=== PATIENT | female | born 2000 | race Caucasian/White ===

== ENCOUNTER 2022-03-23 19:05 | Emergency (ER) | payer OTHER, SELFPAY ==
--- NOTE | ~2022-03-23 | US_ITS ---
US OB <=14 wk fetus w TV DATE: 03/23/2022 21:44 INDICATION: Vaginal bleeding and cramping and 6 week gravid patient TECHNIQUE: Real-time imaging via transabdominal and transvaginal approaches COMPARISON: None FINDINGS: The uterus measures approximately 8.5 cm height, 5 cm AP dimension. A small intrauterine gestational sac with yolk sac is identified, with normal surrounding hyperechoge nicity consistent with decidual reaction. pole is not definitely identified. Gestational sac size of 0.42 cm it consistent with estimated gestational age of 5 weeks 1 day +/- 3 d ays with ZACH of 11/22/2022. Right ovary 4.0 x 1.9 x 1.9 cm. Left ovary 3.4 x 1.3 x 1.6 cm. There is blood flow to both ovaries. N o adnexal mass lesion or abnormal free pelvic fluid collection is evident. IMPRESSION: Early intrauterine gestation, 5 weeks 1 day estimated gestational age, with ZACH of 2021 Reviewed, dictated and finalized at [facility] Reviewed, dictated and finalized at [facility]. IMPRESSION: Early intrauterine gestation, 5 weeks 1 day estimated gestational a ge, with ZACH of 11/22/2022
[2022-03-23 19:09] VITALS: BP 126/82; PULSE 78; RESP 14; TEMP 36.6; O2SAT 100
[2022-03-23 20:16] VITALS: BP 125/83; PULSE 83; RESP 18; O2SAT 99
--- NOTE | 2022-03-23 20:54 | ED.GENADULT ---
HPI - General Adult General Chief complaint: Vaginal Bleeding <ELIAN Spears Last Filed: 03/24/22 03:18> Stated complaint: preg, vag bleeding <ELIAN Spears Last Filed: 03/24/22 03:18> Time Seen by Provider: 03/23/22 20:15 <ELIAN Spears Last Filed: 03/24/22 03:18> History of Present Illness HPI narrative: 21-year-old female, G1, P0, who is currently 6 weeks , here for evaluation of vaginal spotting and abdominal cramping for the past 2 days. Patient reports she has gone through about 3 pantiliners today and does note small blood clots. States her cramping is mild and intermittent and is across her lower abdomen, and occasionally is present in her labia. She has established care with Emily Sales NP at [facility]. She was seen last week there for a Pap test, but has not had an ultrasound to confirm IUP. Reports some lightheadedness today, but no syncope, chest pain, shortness of breath, fevers, vaginal discharge. <ELIAN Spears Last Filed: 03/24/22 03:18> Related Data Allergies/adverse reactions: Allergies Allergy/AdvReac Type Severity Reaction Status Date / Time No Known Allergies Allergy Verified 03/23/22 19:13 <ELIAN Spears Last Filed: 03/24/22 03:18> Review of Systems Review of Systems: Gen: Denies fevers or chills Eyes: Denies eye pain or visual change ENT: Denies congestion Respiratory: Denies shortness of breath or cough CV: Denies chest pain or palpitations GI: Reports abdominal cramping. Denies nausea, emesis or diarrhea : Reports vaginal bleeding. Denies burning, urgency, frequency or hematuria Musculoskeletal: Denies back pain or muscle pain Neuro: Denies numbness, tingling, weakness or focal weakness Skin: Denies rash Except as documented, all other systems reviewed and negative <ELIAN Spears Last Filed: 03/24/22 03:18> All systems reviewed & are unremarkable except as noted in HPI and below <Evon Aguilar PA-C - Last Filed: 03/24/22 03:18> Exam Narrative: APPEARANCE: Well appearing, no pain in distress, well-nourished. Head: normocephalic and atraumatic. EYES: PERRLA/EOMI, conjunctivae clear NOSE: No nasal drainage EARS: External ear normal in appearance THROAT: Oropharynx is clear. Mucous membranes are moist. NECK: Supple. No adenopathy, no masses. RESPIRATORY: Airway patent, respirations nonlabored. Clear to auscultation bilaterally, no rales, rhonchi, wheezing. CARDIOVASCULAR: Regular rate and rhythm without murmurs, rubs, or gallops. ABDOMINAL: Normoactive bowel sounds. Soft, nontender, nondistended. No rebound tenderness or guarding. : Performed with legal practice manager Rowena. Small amount of blood in vaginal vault. Cervical os closed. MUSCULOSKELETAL: Extremities are warm and well-perfused. Moves all extremities well. No edema. NEURO: Normal speech. No focal neurologic deficits. SKIN: Skin is warm and dry. No rashes. PSYCHIATRIC: Normal affect/mood. <Evon Aguilar PA-C - Last Filed: 03/24/22 03:18> Course [employer]ER/PA Physician Supervision I did not see this patient but the care plan was discussed with me, labs and imaging reviewed. I agree with the documentation as above <Alberto Caban MD - Last Filed: 03/24/22 07:25> Vital Signs Vital signs: Vital Signs Temperature 36.6 C 03/23/22 19:09 Pulse Rate 78 03/23/22 19:09 Respiratory Rate 14 03/23/22 19:09 Blood Pressure 126/82 03/23/22 19:09 Pulse Oximetry 100 03/23/22 19:09 Temperature 36.6 C 03/23/22 19:09 Pulse Rate 88 03/23/22 22:09 Respiratory Rate 16 03/23/22 22:09 Blood Pressure 119/72 03/23/22 22:09 Pulse Oximetry 100 03/23/22 22:09 <Evon Aguilar PA-C - Last Filed: 03/24/22 03:18> Vital Signs Temperature 36.6 C 03/23/22 19:09 Pulse Rate 78 03/23/22 19:09 Respiratory Rate 14 03/23/22 19:09 Blood Pressure 126/82 03/23/
[2022-03-23 21:10] LABS: Basophils Absolute Auto 0.1 K/mm3 (0.0-0.1); Basophils Percent Auto 0.6 % (0.2-1.2); Eosinophils Absolute Auto 0.5 K/mm3 (0-0.3); Eosinophils Percent Auto 5.7 % (0-4.4); Hematocrit 33.7 % (37.0-47.0); Hemoglobin 11.4 g/dL (12.0-15.0); Immature Granulocyte Absolute 0.02 K/mm3 (0.00-0.031); Immature Granulocyte Percent A 0.2 % (0-0.5); Lymphocytes Absolute Auto 2.39 K/mm3 (0.9-3.2); Lymphocytes Percent Auto 27.3 % (18.3-44.2); Mean Corpuscular HGB Conc 33.8 g/dl (32-36); Mean Corpuscular Hemoglobin 29.7 pg (26-34); Mean Corpuscular Volume 87.8 fl (80-100); Mean Platelet Volume 9.6 fl (7.4-10.4); Monocytes Absolute Auto 0.6 K/mm3 (0.1-0.6); Monocytes Percent Auto 6.5 % (2.6-8.5); Neutrophils Absolute Auto 5.2 K/mm3 (1.3-6.7); Neutrophils Percent Auto 59.7 % (45.5-73.1); Platelet Count Result 265 k/mm3 (150-375); Red Blood Count 3.84 M/mm3 (4.2-5.4); Red Cell Distribution Width 12.4 % (11.5-14.5); White Blood Count 8.8 K/mm3 (4.5-10.0)
--- NOTE | 2022-03-23 21:13 | PC.NURSE ---
[facility] arrived to transport pt
[2022-03-23 21:14] LABS: Add Urine Microscopic? YES; Appearance Urine Clear (Clear); Bilirubin Urine Negative (Negative); Blood Urine 3+ (Negative); Color Urine Yellow (Yellow); Glucose Urine UA Negative (Negative); Ketones Urine Negative (Negative); Leukocyte Esterase Ur Negative LEU/UL (Negative); Mucus Urine Rare /lpf; Nitrate Urine Negative (Negative); Protein Urine Negative (Negative); RBC Urine 0-2 /hpf (0-2); Specific Grav Ur 1.013 (1.001-1.035); Squamous Epithelial Cell Urine Occasional /hpf (Few); Urobilinogen Urine Negative mg/dL (<2.0); WBC Urine 0-3 /hpf
--- NOTE | 2022-03-23 21:52 | PC.NURSE ---
Pt requesting water. Pt educated on reason for NPO status, verbalized understanding.
[2022-03-23 22:09] VITALS: BP 119/72; PULSE 88; RESP 16; O2SAT 100
== END 2022-03-23 23:21 | disposition home or self-care (01) ==
PROVIDERS: Physician Assistant; Emergency Provider Emergency Medicine; PCP Nurse Practitioner Family
DX: O20.9 Hemorrhage in early pregnancy, unspecified (principal); Z3A.01 Less than 8 weeks gestation of pregnancy
CPT/HCPCS: 36415; 76801; 76817; 81001; 84702; 85025; 85461; 99284

== ENCOUNTER 2022-03-25 23:03 | Emergency (ER) | payer OTHER, SELFPAY ==
[2022-03-25 23:05] VITALS: BP 115/76; PULSE 95; RESP 14; TEMP 36.5; O2SAT 100
[2022-03-26 00:34] LABS: Basophils Absolute Auto 0.1 K/mm3 (0.0-0.1); Basophils Percent Auto 0.7 % (0.2-1.2); Eosinophils Absolute Auto 0.4 K/mm3 (0-0.3); Eosinophils Percent Auto 4.6 % (0-4.4); Hematocrit 33.2 % (37.0-47.0); Immature Granulocyte Absolute 0.03 K/mm3 (0.00-0.031); Immature Granulocyte Percent A 0.4 % (0-0.5); Lymphocytes Absolute Auto 2.86 K/mm3 (0.9-3.2); Lymphocytes Percent Auto 37.9 % (18.3-44.2); Mean Corpuscular HGB Conc 33.1 g/dl (32-36); Mean Corpuscular Hemoglobin 29.9 pg (26-34); Mean Corpuscular Volume 90.2 fl (80-100); Mean Platelet Volume 9.5 fl (7.4-10.4); Monocytes Absolute Auto 0.8 K/mm3 (0.1-0.6); Monocytes Percent Auto 9.9 % (2.6-8.5); Neutrophils Absolute Auto 3.5 K/mm3 (1.3-6.7); Neutrophils Percent Auto 46.5 % (45.5-73.1); Platelet Count Result 257 k/mm3 (150-375); Red Blood Count 3.68 M/mm3 (4.2-5.4); Red Cell Distribution Width 12.3 % (11.5-14.5); White Blood Count 7.6 K/mm3 (4.5-10.0)
[2022-03-26 00:39] LABS: Alanine Aminotransferase 10 U/L (4-35); Albumin Level 4.3 g/dL (3.5-5.1); Alkaline Phosphatase 49 U/L (38-126); Anion Gap 7 mmol/L (8-16); Aspartate Amino Transferase 23 U/L (14-36); Bilirubin,Total 0.7 mg/dL (0.2-1.3); Blood Urea Nitrogen 12 mg/dL (7-17); Calcium 8.7 mg/dL (8.4-10.2); Carbon Dioxide 25 mmol/L (22-30); Chloride 105 mmol/L (98-107); Estimated CRCL calculation 105 ml/min; Estimated Glomerular Filt Rate > 60; Glucose 84 mg/dL (65-110); Potassium 3.5 mmol/L (3.4-5.0); Sodium 137 mmol/L (137-145)
[2022-03-26 01:00] LABS: Beta HCG Quantitative 152.63 mIU/ML
--- NOTE | 2022-03-26 01:22 | ED.FEMALEGU ---
HPI - Female Genitourinary General Chief complaint: Vaginal Bleeding Stated complaint: vaginal bleeding passing clots seen here recently Time Seen by Provider: 03/25/22 23:42 Source: patient Mode of arrival: ambulatory History of Present Illness HPI Narrative: 21-year-old female G1, P0 presents today with complaints of vaginal bleeding that has been constant since Friday. Patient seen here Friday and instructed to follow-up with OB. Patient states that she has not been able to call her OB yet. Patient states she has been going through about 1 tampon every 3 or so hours, with a clot just prior to arrival. Pain currently tolerable patient has been treating with Tylenol at home. Patient denies any dizziness, chest pain, shortness of breath. Related Data Allergies Allergy/AdvReac Type Severity Reaction Status Date / Time No Known Allergies Allergy Verified 03/23/22 19:13 Review of Systems Review of Systems: CONSTITUTIONAL: Denies fever, chills, or sweats. EYES: Denies visual changes, redness, or discharge. ENT: Denies rhinorrhea, congestion, sore throat, or otalgia. CARDIOVASCULAR: Denies chest pain, palpitations, or edema. RESPIRATORY: Denies cough or dyspnea. GASTROINTESTINAL: Lower abdominal/pelvic cramping. Denies nausea, vomiting, or diarrhea. GENITOURINARY: Vaginal bleeding with cramping. Denies dysuria or hematuria. SKIN: Denies rash or itching. MUSCULOSKELETAL: Denies back pain, joint pain, or myalgia. NEUROLOGIC: Denies headache, numbness, dizziness, or weakness. PSYCHIATRIC: Denies anxiety or depression. Exam Narrative: GENERAL: Well-appearing, well-nourished, and in no acute distress. HEAD: Normocephalic, atraumatic. EYES: PERRLA and EOMI. ENT: Nares clear, no rhinorrhea or epistaxis. Mucous membranes moist. NECK: Supple. No adenopathy or masses. No carotid bruits or JVD CHEST: Clear to auscultation. No respiratory distress. No wheezes rales or rhonchi HEART: Regular rate and rhythm. No murmur heard. Normal peripheral pulses. ABDOMEN: Soft, nontender, nondistended, normal active bowel sounds. EXTREMITIES: Normal range of motion. No edema. SKIN: Warm, dry, no rash. NEURO: No focal deficits. Alert and oriented x3. PSYCH: Normal mood and affect. Course Course Emergency Course: Labs reviewed with patient. Patient aware that she is having a spontaneous . Patient instructed to follow-up with OB in the morning. May use Tylenol or ibuprofen as needed for pain. Vital Signs Vital signs: Vital Signs Temperature 36.5 C 03/25/22 23:05 Pulse Rate 95 03/25/22 23:05 Respiratory Rate 14 03/25/22 23:05 Blood Pressure 115/76 03/25/22 23:05 Pulse Oximetry 100 03/25/22 23:05 Temperature 36.5 C 03/25/22 23:05 Pulse Rate 95 03/25/22 23:05 Respiratory Rate 14 03/25/22 23:05 Blood Pressure 115/76 03/25/22 23:05 Pulse Oximetry 100 03/25/22 23:05 MDM - Female Genitourinary MDM Narrative Medical decision making narrative: HPI as noted. Hemoglobin 11.0, beta hCG 152.63 (previous was over 600 on Friday). Patient without dizziness or lightheadedness. Due to decreasing beta hCG diagnosis consistent with spontaneous . Patient aware of importance of follow-up with OB for further management. Differential Diagnosis Differential diagnosis: Likely other (Spontaneous , vaginal bleeding in , subchorionic hemorrhage) Lab Data Result diagrams: 03/26/22 00:15 03/26/22 00:15 Labs: Lab Results 03/26/22 03/26/22 03/26/22 Range/Units 00:15 00:15 00:15 WBC 7.6 (4.5-10.0) K/mm3 RBC 3.68 L (4.2-5.4) M/mm3 Hgb 11.0 L (12.0-15.0) g/dL Hct 33.2 L (37.0-47.0) % MCV 90.2 (80-100) fl MCH 29.9 (26-34) pg MCHC 33.1 (32-36) g/dl RDW 12.3 (11.5-14.5) % Plt Count 257 (150-375) k/mm3 MPV 9.5 (7.4-10.4) fl Immature Gran % (Auto) 0.4 (0-0.5) % Neut % (Auto) 46.5 (45.5-73.1) % Lymph % (A
== END 2022-03-26 01:42 | disposition home or self-care (01) ==
PROVIDERS: Emergency Provider Nurse Practitioner Family; PCP Nurse Practitioner Family
DX: O03.9 Complete or unspecified spontaneous abortion without complication (principal)
CPT/HCPCS: 36415; 80053; 84702; 85025; 99283